=== PATIENT | female | born 1950 ===

== ENCOUNTER 2023-12-15 06:40 | Day surgery (SDC) | payer OTHER ==
[~2023-12-15] VITALS: Ht 157.5 cm; Wt 59.0 kg
[~2023-12-15 06:40] MED LIST: DIOVAN160 M1 PO; HYDRODIURIL12.5 MG PO; METRONIDAZOLE/SODIUM CHLORIDE 500 MG/100 ML PIGGYBACK IV ONE; NORVASC2.5 MG PO
[2023-12-15] MEDS ORDERED: METRONIDAZOLE/SODIUM CHLORIDE 500 MG/100 ML PIGGYBACK IV ONE ×2 (09:44→10:15)
[2023-12-15] MEDS ORDERED: BUPIVACAINE HCL/PF 0.5% 30ML ML ONE (09:46)
[2023-12-15] MEDS ORDERED: DIBUCAINE 30 GM TUBE ONE (09:47)
[2023-12-15] MEDS ORDERED: LIDOCAINE HCL/EPINEPHRINE 10MG/ML 1% 50ML IJ ONE ×2 (09:47→10:15)
[2023-12-15] MEDS ORDERED: POVIDONE-IODINE 118 ML BOTT TOP ONE ×2 (09:47→10:15)
[2023-12-15] MEDS ORDERED: HEMOSTATIC MATRIX 1 KIT KIT TOP ONE ×2 (09:47→10:15)
[2023-12-15] MEDS ORDERED: levoFLOXacin IN DEXTROSE 5 % 5 MG/ML PIGGYBAG IV ONE (10:15)
[2023-12-15] MEDS ORDERED: BUPIVACAINE HCL/PF 0.25% 30ML VIAL InF ONE (10:15)
[2023-12-15] MEDS ORDERED: DIBUCAINE 30 GM TUBE RECTAL ONE (10:15)
[2023-12-15] MEDS ORDERED: ACETAMINOPHEN500 M2 PO (10:59)
[2023-12-15] MEDS ORDERED: NEURONTIN300 MG PO (10:59)
[2023-12-15] MEDS ORDERED: COLACE100 MG PO (10:59)
== END 2023-12-15 14:10 | disposition home or self-care (01) ==
LOC: CIR.AMB 06:40
PROVIDERS: ATTEND Surgery
DX: D12.8 Benign neoplasm of rectum (principal); K62.89 Other specified diseases of anus and rectum; D12.3 Benign neoplasm of transverse colon; Z88.0 Allergy status to penicillin